=== PATIENT | male | born 1960 | race Caucasian/White ===

== ENCOUNTER 2016-10-04 01:19 | Emergency (ER) | payer OTHER ==
[~2016-10-04] VITALS: Ht 185.4 cm; Wt 86.2 kg
--- NOTE | 2016-10-04 01:20 | NUR ---
PT AMBULATORY TO BED 8 ACCOMPANIED BY FAMILY. REPORT GIVEN TO CAR GANN.
[2016-10-04 01:22] VITALS: BP 160/92; PULSE 79; RESP 16; TEMP 97.7; O2SAT 98
--- NOTE | 2016-10-04 01:29 | NUR ---
Pt awake alert oriented x 4. Clear speech. Pt stated epigastric pain for the last one hour and one episode of diarrhea. Denied SOB at the time. No acute distress noted. will continue to monitor
--- NOTE | 2016-10-04 01:30 | NUR ---
DR ALLEN AT BEDSIDE TO EXAMINE PT AND DISCUSS PLAN OF CARE.
[2016-10-04] MEDS ORDERED: MAG HYDROX/AL HYDROX/SIMETH 30 ML, BELLADONNA ALKALOIDS/PHENOBARB 10 ML, LIDOCAINE VISC... PO ONE ×3 (01:45)
[2016-10-04] MEDS ORDERED: KETOROLAC TROMETHAMINE 30 MG VIAL IVP ONE (01:45)
--- NOTE | 2016-10-04 01:57 | NUR ---
Pt was take to radiology via wheelchair
[2016-10-04 01:58] LABS: BASOPHILS % (AUTO) 0.6 % (0.0-2.0); EOSINOPHILS # (AUTO) 0.5 K/uL (0.0-0.4); EOSINOPHILS % (AUTO) 8.3 % (0.0-4.0); HEMATOCRIT 41.3 % (36-54); HEMOGLOBIN 13.9 g/dL (14.0-18.0); LYMPHOCYTES % (AUTO) 33.5 % (20.5-51.5); MEAN CORPUSCULAR HEMOGLOBIN 31 pg (27-31); MEAN CORPUSCULAR HGB CONC 34 % (32-36); MEAN CORPUSCULAR VOLUME 91 fL (79.0-98.0); MONOCYTES # (AUTO) 0.4 K/uL (0.0-1.0); NEUTROPHILS # (AUTO) 3.2 K/uL (1.8-7.7); NEUTROPHILS % (AUTO) 51.6 % (40.0-70.0); PLATELET COUNT (AUTO) 207 K/uL (130-430); RED BLOOD CELL COUNT(AUTO) 4.52 MIL/uL (4.2-6.2); RED CELL DISTRIBUTION WIDTH 12.5 % (9.0-15.0); WHITE BLOOD COUNT (AUTO) 6.1 K/uL (4.8-10.8)
[2016-10-04 02:06] LABS: CALCIUM 8.6 mg/dL (8.4-11.0); CREATININE 1.08 mg/dL (0.55-1.30); POTASSIUM 3.6 mmol/L (3.5-5.1)
[2016-10-04 02:25] LABS: ALBUMIN 4.2 g/dL (3.4-4.8); TOTAL BILIRUBIN 0.5 mg/dL (0.0-1.0); TOTAL PROTEIN, SERUM 7.3 g/dL (6.4-8.3)
[2016-10-04 02:28] VITALS: TEMP 98
[2016-10-04 03:18] VITALS: BP 144/92; PULSE 68; RESP 16; O2SAT 97
--- NOTE | 2016-10-04 03:18 | NUR ---
Patient given written and verbal discharge instructions and verbalizes understanding. ER MD discussed with patient the results and treatment provided. Given copies of tests performed in ER. Patient in stable condition. ID arm band removed. IV catheter removed intact and dressing applied, no active bleeding. Rx of norco 325mg/5mg 1-2 tabs every 4 hours given. Patient educated on pain management and to follow up with PMD. Pain Scale 0/10. Opportunity for questions provided and answered.
== END 2016-10-04 03:18 | disposition home or self-care (01) ==
LOC: SED 01:19
DX: R10.13 Epigastric pain (principal); R06.02 Shortness of breath
CPT/HCPCS: 36415; 74020; 80053; 83690; 84484; 85025; 93005; 96374; 99285; J1885; J2001